=== PATIENT | female | born 1955 | race Caucasian/White ===

== ENCOUNTER → 2018-02-24 07:34 | Outpatient (CLI) | payer OTHER, SELFPAY ==
--- NOTE | 2018-02-24 07:46 | MRI_ITS ---
STUDY: MRI CERVICAL SPINE WITHOUT CONTRAST REASON FOR EXAM: Female, 62 years old. Follow-up evaluation of fracture of the cervical spine. TECHNIQUE: Standardized fat and water weighted pulse sequences were obtained in the sagittal and axial planes. Multiple images are limited by patient motion. COMPARISON: Previous CT of the cervical spine obtained in [place], [place] is not available for comparison at the time of dictation. FINDINGS: Normal foramen magnum and brainstem-cervical cord junction. Normal craniovertebral junction. There is hypertrophy of the transverse ligament of the atlas with mild posterior displacement of the superior and inferior longitudinal fibers of the cruciform ligament, producing minimal ventral thecal sac flattening, but without cervical cord impingement. There are mild degenerative changes in the anterior atlantoaxial articulation. There appear to be erosive changes of the tip of the odontoid process. Normal cervical lordosis. There appears to be compression fractures of C5 and C6. Estimated amount of compression is approximately 70% of C5 and C6. These compression fractures appear to be old. There is anterolisthesis at C5-6. C2-3: There is narrowing of the disc. Significant patient motion limits the quality of imaging at this level. The neural foramina are not well-seen. There is no significant central acquired canal stenosis. C3-4: There is narrowing of the disc. There appears to be severe bilateral neural foraminal narrowing with probable nerve root impingement. There is uncovertebral facet joint arthropathy. C4-5: There is narrowing of the disc. The axial images are nondiagnostic at this level. C5-6: There is anterolisthesis at this level. There is probable acquired canal stenosis at this level. The axial images are nondiagnostic. C6-7: There appears to be a segmentation anomaly at this level. There does not appear to be a normal disc at this level. The neural foramina are mildly narrowed without definite evidence for nerve impingement. C7-T1: Normal endplates. Normal disc height, signal and morphology. Normal central canal and intervertebral neural foramina. Normal cervical cord. There is no demonstrated cervical cord syrinx cavity. Normal visualized soft tissue structures. MRI/Spine Cervical (Routine) IMPRESSION: 1. Technically limited MRI due to patient motion. 2. compression fractures of C5 and C6 with irregular endplates suggesting the possibility of previous discitis and old compression fractures. 3. There is no MR evidence for fracture at C3. Electronically Signed: Bettina Christine MD at 9:46 EDT , Service support ,
== END ==
PROVIDERS: Family Provider Family Medicine; PCP Family Medicine
DX: M47.892 Other spondylosis, cervical region (principal)
CPT/HCPCS: 72141

== ENCOUNTER → 2019-06-20 12:57 | Outpatient (CLI) | payer OTHER, SELFPAY ==
[2017-03-03 12:21] VITALS: BMI 20.2
--- NOTE | 2019-06-20 13:00 | RAD_ITS ---
STUDY: X-RAY - PELVIS AND BILATERAL HIPS REASON FOR EXAM: Hip pain and low back pain since March. TECHNIQUE: AP view of the pelvis.? 2 views of the right hip, and 2 views of the left hip were obtained. COMPARISON: None. FINDINGS: There are small pelvic phleboliths. There are postoperative changes of the lumbar spine. Normal bilateral iliac wings, sacroiliac joints and visualized sacrum. Normal bilateral superior and inferior pubic rami. Normal pubic symphysis. Normal bilateral ischial tuberosities. Normal visualized right femoral head. Normal right acetabulum. There is mild joint space narrowing of the medial right hip joint. Normal visualized left femoral head. Normal left acetabulum. There is mild joint space narrowing of the medial left hip joint. RAD/Hips B/L min 2 views w/ Pelvis IMPRESSION: Mild bilateral hip arthrosis. Electronically Signed: Omid Mitchell MD at 14:05 EST Tel , Service support ,
== END ==
PROVIDERS: PCP Family Medicine; Referring Provider Anesthesiology Pain Medicine; Visit Provider Anesthesiology Pain Medicine
DX: M25.559 Pain in unspecified hip (principal)
CPT/HCPCS: 73521

== ENCOUNTER → 2020-09-09 10:48 | Outpatient (CLI) | payer MEDICARE, OTHER, SELFPAY ==
[2020-09-12 16:46] LABS: HPV APTIMA, High Risk Negative (Negative); HPV Reflexed? YES, CHARGE PATIENT
== END ==
PROVIDERS: PCP Family Medicine; Visit Provider Student in an Organized Health Care Education/Training Program
DX: Z12.4 Encounter for screening for malignant neoplasm of cervix (principal)
CPT/HCPCS: 87624; 88175; G0145

== ENCOUNTER 2023-11-09 12:14 | Emergency (ER) | payer MEDICARE, OTHER, SELFPAY ==
[2023-11-09 12:14] VITALS: BP 125/93; PULSE 72; RESP 19; TEMP 36.2; O2SAT 97; BMI 20.5
--- NOTE | 2023-11-09 13:40 | EKG12_ITS ---
Test Reason : Blood Pressure : / mmHG Vent. Rate : 057 BPM Atrial Rate : 057 BPM P-R Int : 142 ms QRS Dur : 092 ms QT Int : 454 ms P-R-T Axes : 012 019 061 degrees QTc Int : 441 ms Sinus bradycardia Low voltage QRS Nonspecific T wave abnormality Abnormal ECG Confirmed by Darryl Jha ([id number]), manuscript editor CONSTANCE AYALA ([id number]) on 11/10/2023 11:10:42 AM Referred By: Confirmed By:Darryl Jha
--- NOTE | 2023-11-09 13:49 | ED.RN ---
NO OLD EKGS
[2023-11-09 14:00] VITALS: BP 131/88; PULSE 56; RESP 13
--- NOTE | 2023-11-09 14:04 | RAD_ITS ---
STUDY: X-RAY CHEST REASON FOR EXAM: Female, 68 years old. Chest pain with numbness and tingling in the left upper extremity. TECHNIQUE: Single AP portable view of the chest. COMPARISON: None. FINDINGS: EKG electrodes are seen. The lungs are clear and expanded. There is no demonstrated pleural abnormality. Normal size heart. Normal mediastinum and philip. Normal visualized pulmonary arteries. There is atherosclerotic calcification of the aortic arch with tortuosity. There is a dextroscoliosis of the thoracic spine. There is degenerative osteoarthritis of the bilateral shoulders. There is no demonstrated abnormality of the visualized soft tissue structures of the upper abdomen. RAD/Chest 1 View (Portable) IMPRESSION: No acute abnormality is seen. Electronically Signed: Alber Franklin MD at 14:18 EDT ,
--- NOTE | 2023-11-09 14:10 | EDS_ITS ---
HPI History of Present Illness Chief Complaint: Upper Extremity Injury Narrative Narrative: 68-year-old female presenting with aching in her arms. She states it started on Tuesday and she had diffuse aching of her left arm up into her shoulder most of the evening. She states she woke up in the morning and it was gone. She states that later in the day it returned and noted that it was there most of the night again. On Tuesday she had similar pain and noticed that it started radiating to the right arm. She denies chest pain or shortness of breath but states that the aching is very severe. No fevers, chills, cough. No trauma. She has not had any trouble moving her arms or doing her ADLs. She denies numbness. PFSH PFS Home Medications ?Medication ?Instructions ?Recorded ?Last Taken ?Type Bacillus coagulans 250 million 1 ea PO TID 02/25/17 Unknown History cell chewable tablet (Digestive Advantage Probiotic Gummy) [id number] 150 unit 1 ea PO PRN PRN Gas 02/25/17 Unknown History tablet (Beano) cholecalciferol (vitamin D3) 10 400 unit PO DAILY 02/25/17 Unknown History mcg (400 unit) capsule (Vitamin D3) cyanocobalamin (vitamin B-12) 500 500 mcg PO BID 02/25/17 Unknown History mcg tablet (Vitamin B-12) dextroamphetamine-amphetamine ER 20 mg PO BID 02/25/17 03/03/17 07:00 History 20 mg 24hr capsule,extend release (Adderall XR) duloxetine 30 mg capsule,delayed 90 mg PO DAILY 02/25/17 03/03/17 07:00 History release levothyroxine 50 mcg tablet 50 mcg PO DAILY 02/25/17 03/03/17 07:00 History meloxicam 15 mg tablet (Mobic) 15 mg PO DAILY 02/25/17 Unknown History simethicone 125 mg capsule (Gas 125 mg PO PRN PRN Gas 02/25/17 Unknown History Relief (simethicone)) carbidopa 25 mg-levodopa 100 mg 1 tab PO 4X/DAY 11/09/23 Unknown History tablet duloxetine 60 mg capsule,delayed 60 mg PO DAILY 11/09/23 Unknown History release fluoride (sodium) 1.1 % dental PO 11/09/23 Unknown History paste hydroxyzine HCl 25 mg tablet 25 mg PO 4X/DAY PRN PRN depression 11/09/23 Unknown History ibandronate 150 mg tablet mg PO 11/09/23 Unknown History lamotrigine 200 mg tablet 200 mg PO BID 11/09/23 Unknown History linaclotide 72 mcg capsule 72 mcg PO DAILY 11/09/23 Unknown History (Linzess) lisinopril 20 mg tablet 20 mg PO DAILY 11/09/23 Unknown History metformin 500 mg tablet 500 mg PO TID 11/09/23 Unknown History pantoprazole 20 mg tablet,delayed 20 mg PO DAILY 11/09/23 Unknown History release rosuvastatin 10 mg tablet 10 mg PO QHS 11/09/23 Unknown History Allergy/AdvReac Type Severity Reaction Status Date / Time No Known Allergies Allergy Verified 02/25/17 13:17 Social History Smoking Status: Never smoker ROS ROS ED Constitutional Constitutional ED: Denies chills, fever(s) or sweats Eyes Eyes: Denies blurry vision or change in vision ENT ENT ED: Denies ear pain or sore throat Cardiovascular Cardiovascular: Denies chest pain, palpitations or racing heartbeat Respiratory/Chest Respiratory/Chest: Denies cough, dyspnea or sputum Gastrointestinal Gastrointestinal: Denies abdominal pain, constipation, diarrhea, nausea or vomiting Genitourinary Genitourinary ED: Denies dysuria, hematuria or urinary frequency Musculoskeletal Musculoskeletal: Reports other Details: Bilateral arm pain ; Denies arthralgias, myalgias or neck pain Integumentary Denies abscess, Abrasions or rash Neurologic Neurologic: Denies headache(s), paresthesias or weakness Psychiatric Psychiatric: Denies anxiety, depression, suicidal ideation or suicidal thoughts Endocrine Endocrinology: Denies polydipsia or polyuria EXAM Physical Exam Const Vital Signs: 11/09/23 12:14 11/09/23 13:43 Temperature 97.1 F L Temperature Source Temporal Pulse Rate 72 Respiratory Rate 19 H Blood Pressure 125/93 H Blood Pressure Mean 103 Pulse Ox 97 Oxygen Delivery Method Room Air Room Air Positive well nourished General Appearance ED: NAD HEENT Reports moist mucous membranes normocephalic and atraumatic Eyes PERRL and EOMs intact bilaterally Neck full ROM Neck Narrative: No midline spinal tenderness, deformity, step-off. Chest Wall inspection of chest normal and palpation of chest normal Resp normal respiratory effort and clear to auscultation bilaterally Auscultation: Negative for rales, rhonchi or wheezes Cardio regular rate and regular rhythm Extremity Extremity Narrative: Bilateral upper extremities are nontender to palpation. There is no bruising or rashes. Patient is able to range all joints in the upper extremities without any difficulty. Her strength is 5/5. No numbness or tingling. Neurovascular intact throughout. Neuro oriented x3 and CN's II-XII intact bilaterally Sensorium / Orientation: alert Psych mental status grossly normal MDM MDM MDM Narrative Medical decision making narrative: Patient presenting with bilateral arm pain. On examination she is neurovascular intact has 5/5 motor strength. There is no tenderness on palpation. We discussed this at length and ultimately determined we would do a cardiac workup to make sure this was not some kind of atypical presentation. Differential includes myalgias, ACS, dehydration, anemia, electrolyte abnormality. CBC will be obtained to assess white blood cell count, hemoglobin, platelets. BMP to assess renal function, electrolytes, glucose. High-sensitivity troponin and EKG to assess for ischemia/dysrhythmia. Chest x-ray to rule out pneumonia. CBC shows normal white blood cell count 4.8. Hemoglobin 9.4. Platelets are normal at 233. Renal function electrolytes are normal. High-sensitivity troponin is 10. EKG interpreted by myself shows a sinus bradycardia at 57 bpm without sign of ischemic change. Chest x-ray 1 view interpreted by myself shows no acute cardiopulmonary process. Radiologist interpretation agrees. Patient states he had a lot of relief from Toradol. I recommended she alternate Tylenol and ibuprofen at home for pain. She states she is only taking Tylenol. She knowledges understanding. Discharged stable condition. Impression: 1. Myalgias Lab Data Attestation: I reviewed the patient's lab results. Discharge Plan Triage Chief Complaint: Upper Extremity Injury ED Provider: Edgardo Ya Dx/Rx/DC Orders Instructions: ED Myalgias Prescriptions: No Action meloxicam [Mobic] 15 MG tablet 15 mg PO DAILY simethicone [Gas Relief (simethicone)] 125 MG capsule 125 mg PO PRN PRN (Reason: Gas) cyanocobalamin (vitamin B-12) [Vitamin B-12] 500 MCG tablet 500 mcg PO BID dextroamphetamine-amphetamine [Adderall XR] 20 MG capsule,extended release 24hr 20 mg PO BID levothyroxine 50 MCG tablet 50 mcg PO DAILY cholecalciferol (vitamin D3) [Vitamin D3] 400 UNIT capsule 400 unit PO DAILY duloxetine 30 MG capsule 90 mg PO DAILY [id number] [Beano] 150 UNIT tablet 1 ea PO PRN PRN (Reason: Gas) Bacillus coagulans [Digestive Advantage Prob Gummy] 1 EACH tablet,chewable 1 ea PO TID hydroxyzine HCl 25 mg tablet 25 mg PO 4X/DAY PRN PRN (Reason: depression) carbidopa-levodopa 25-100 mg tablet 1 tab PO 4X/DAY duloxetine 60 mg capsule,delayed release(DR/EC) 60 mg PO DAILY fluoride (sodium) 1.1 % paste PO metformin 500 mg tablet 500 mg PO TID lamotrigine 200 mg tablet 200 mg PO BID lisinopril 20 mg tablet 20 mg PO DAILY pantoprazole 20 mg tablet,delayed release (DR/EC) 20 mg PO DAILY rosuvastatin 10 mg tablet 10 mg PO QHS ibandronate 150 mg tablet PO Patient Comments: PLEASE SEE ATTACHED FOR DETAILED DIRECTIONS Linzess 72 mcg capsule 72 mcg PO DAILY Primary Care Provider: Vasile Calabrese Referrals: Vasile Calabrese MD [Primary Care Provider] - Print Language: Mongolian Disposition Disposition: Home, Self Care
[2023-11-09 14:16] LABS: Absolute Lymphocyte Count 0.79 X10^3/uL (0.83-4.51); Absolute Neutrophil Count 3.5 X10^3/uL (2.0-7.7); Basophil# 0.02 X10^3/uL; Basophil% 0.4 % (0-1); Eosinophil# 0.12 X10^3/uL; Eosinophils% 2.5 % (0-5); Hematocrit 35.3 % (37-47); Hemoglobin 11.4 g/dL (12.0-15.0); Lymphocyte # 0.79 X10^3/ul (0.83-4.51); Lymphocyte % 16.3 % (19-41); Mean Corp Hgb Conc 32.3 g/dL (32-36); Mean Corpuscular Hgb 30.6 pg (27.0-32.0); Mean Corpuscular Volume 94.9 fL (81-99); Mean Platelet Vol. 10.2 fl (6.2-12.0); Monocyte# 0.38 X10^3/uL; Monocyte% 7.9 % (0-10); NRBC Flagged by Analyzer 0 % (0-5); Neutrophil # 3.51 X10^3/uL (2.7-7.7); Neutrophil % 72.5 % (47-70); Platelet Count 233 K/mm3 (150-450); RBC Distribution Width CV 13.5 % (11.6-14.6); RBC Distribution Width SD 47.1 fl (35.1-43.9); Red Blood Count 3.72 M/mm3 (4.2-5.4); White Blood Count 4.8 K/mm3 (4.4-11.0)
[2023-11-09 14:32] LABS: Anion Gap 3 (5-15); BUN 17 mg/dL (7-18); BUN/Creat Ratio 19.3 RATIO (10-20); Chloride 110 mmol/L (98-107); Creatinine, Serum 0.88 mg/dL (0.55-1.02); EST Glomerular Filtration Rate 68 mL/min (>60); Est Glom Filt Rate - Afr Amer 82 mL/min (>60); Estimated Creatinine Clearance 51.54 ml/min; Glucose 89 mg/dL (74-106); Potassium 3.7 mmol/L (3.5-5.1); Sodium Level 140 mmol/L (136-145); Troponin-I HS 10 pg/mL (3.0-54.0)
[2023-11-09] MEDS: Ketorolac 15 MG/ML Vial IV (14:38)
[2023-11-09 15:15] VITALS: BP 144/123; PULSE 59; RESP 17
== END 2023-11-09 15:33 | disposition home or self-care (01) ==
PROVIDERS: Emergency Provider Student in an Organized Health Care Education/Training Program; PCP Family Medicine; Visit Provider Student in an Organized Health Care Education/Training Program
DX: M79.10 Myalgia, unspecified site (principal); R00.1 Bradycardia, unspecified; M79.602 Pain in left arm; M79.601 Pain in right arm
CPT/HCPCS: 71045; 80048; 84484; 85025; 93005; 96374; 99283; A4216

== ENCOUNTER 2023-12-08 12:24 | Emergency (ER) | payer MEDICARE, OTHER, SELFPAY ==
[2023-12-08 12:25] VITALS: BP 169/95; PULSE 65; RESP 18; TEMP 36.8; O2SAT 99; BMI 20.2
--- NOTE | 2023-12-08 12:53 | CT_ITS ---
INDICATION: abdominal/flank pain EXAMINATION: CT ABDOMEN AND PELVIS WITHOUT CONTRAST - CT Abdomen And Pelvis W/O Contrast Injection TECHNIQUE: Helically acquired images were obtained of the abdomen and pelvis without oral or IV contrast. The protocol utilizes one or more of the following dose reduction techniques: automated exposure control, adjustment of mA and/or kV according to patient size,and/or use of iterative reconstruction technique. IV Contrast dosage and agent: None. Oral contrast: None. RADIATION DOSAGE (If Supplied By Facility): CTDIvol = ( 6.06 ) mGy, DLP = ( 243.73 ) mGycm COMPARISON: No relevant prior comparison study available FINDINGS: LOWER CHEST: Lung bases are clear. No cardiomegaly or pericardial effusion. The lack of intravenous contrast limits evaluation of solid visceral organs. LIVER: Homogeneous. No focal mass. GALLBLADDER AND BILIARY TREE: No calcified gallstones. The gallbladder is distended. There is no gallbladder wall thickening nor pericholecystic fluid visualized. No intra- or extrahepatic biliary ductal dilation. PANCREAS: No focal cystic or solid mass. SPLEEN: Normal size without focal cystic or solid mass. ADRENAL GLANDS: No nodules. KIDNEYS AND URETERS: Normal renal size. No hydronephrosis. PERITONEUM: No ascites or free air. No other fluid collection. BOWEL: No evidence of acute appendicitis. There is a moderate amount of stool and gas throughout the colon. LYMPH NODES: No enlarged mesenteric or retroperitoneal lymph nodes. VESSELS: Aorta is non-dilated. There are peripheral calcifications of the abdominal aorta. URINARY BLADDER: Unremarkable. REPRODUCTIVE ORGANS: No pelvic masses. ABDOMINAL WALL: No discrete abdominal or pelvic wall hernia. BONES: There is a levoscoliosis of the thoracolumbar spine. There is a neurostimulator device in place with leads terminating within the mid thoracic spinal canal. There are postsurgical changes of the posterior elements of L4 and L5. There are multilevel degenerative changes of the visualized thoracic and lumbar spine. CT/Abdomen/Pelvis without Cont IMPRESSION: Moderate amount of stool and gas throughout the colon. Distended gallbladder, consider right upper quadrant ultrasound for further evaluation. Atherosclerosis. Degenerative changes of the visualized thoracic and lumbar spine. Electronically Signed: Margareth Harper MD at 13:27 EDT ,
--- NOTE | 2023-12-08 12:53 | ED.VIS.GI ---
HPI HPI - GI History of Present Illness Chief Complaint: Constipation Informant: patient Narrative Narrative: 68-year-old female presenting to the emergency room chief complaint of abdominal and back pain. Patient states a couple weeks ago she was placed on Celebrex due to bilateral arm pain of undetermined etiology. Path results. She states over the past week she has had pain along her waistband the abdomen and across the back. She thought maybe she had shingles but has not seen a rash. She states that she has been battling constipation for months especially over the past couple weeks. Yesterday she took MiraLAX and Metamucil. She denies any fevers. She notes some nausea. No history of kidney stones. No urinary symptoms. She is having flatus. Patient describes the pain as menstrual cramp-like but not diarrhea cramps. No other new medications. Patient notes that she has chronic back issues has had prior back surgeries staph infections. She states her back pain has been hurting for a very long time. [facility] Medical History (Updated 12/08/23 @ 12:[address] Shaquille Suresh, ) Restless leg Adult hypothyroidism Home Medications ?Medication ?Instructions ?Recorded ?Last Taken ?Type Bacillus coagulans 250 million 1 ea PO TID 02/25/17 Unknown History cell chewable tablet (Digestive Advantage Probiotic Gummy) [id number] 150 unit 1 ea PO PRN PRN Gas 02/25/17 Unknown History tablet (Beano) cholecalciferol (vitamin D3) 10 400 unit PO DAILY 02/25/17 Unknown History mcg (400 unit) capsule (Vitamin D3) cyanocobalamin (vitamin B-12) 500 500 mcg PO BID 02/25/17 Unknown History mcg tablet (Vitamin B-12) dextroamphetamine-amphetamine ER 20 mg PO BID 02/25/17 03/03/17 07:00 History 20 mg 24hr capsule,extend release (Adderall XR) duloxetine 30 mg capsule,delayed 90 mg PO DAILY 02/25/17 03/03/17 07:00 History release levothyroxine 50 mcg tablet 50 mcg PO DAILY 02/25/17 03/03/17 07:00 History meloxicam 15 mg tablet (Mobic) 15 mg PO DAILY 02/25/17 Unknown History simethicone 125 mg capsule (Gas 125 mg PO PRN PRN Gas 02/25/17 Unknown History Relief (simethicone)) carbidopa 25 mg-levodopa 100 mg 1 tab PO 4X/DAY 11/09/23 Unknown History tablet duloxetine 60 mg capsule,delayed 60 mg PO DAILY 11/09/23 Unknown History release fluoride (sodium) 1.1 % dental PO 11/09/23 Unknown History paste hydroxyzine HCl 25 mg tablet 25 mg PO 4X/DAY PRN PRN depression 11/09/23 Unknown History ibandronate 150 mg tablet mg PO 11/09/23 Unknown History lamotrigine 200 mg tablet 200 mg PO BID 11/09/23 Unknown History linaclotide 72 mcg capsule 72 mcg PO DAILY 11/09/23 Unknown History (Linzess) lisinopril 20 mg tablet 20 mg PO DAILY 11/09/23 Unknown History metformin 500 mg tablet 500 mg PO TID 11/09/23 Unknown History pantoprazole 20 mg tablet,delayed 20 mg PO DAILY 11/09/23 Unknown History release rosuvastatin 10 mg tablet 10 mg PO QHS 11/09/23 Unknown History Allergy/AdvReac Type Severity Reaction Status Date / Time No Known Allergies Allergy Verified 12/08/23 12:27 Social History Smoking Status: Never smoker ROS ROS ED Constitutional Constitutional ED: Denies chills, fever(s) or weight loss Eyes Eyes: Denies change in vision or diplopia ENT ENT ED: Denies ear pain, rhinorrhea or sore throat Cardiovascular Cardiovascular: Denies chest pain, orthopnea, palpitations or racing heartbeat Respiratory/Chest Respiratory/Chest: Denies cough, dyspnea or orthopnea Gastrointestinal Gastrointestinal: Reports constipation and nausea; Denies abdominal pain, diarrhea or vomiting Genitourinary Genitourinary ED: Denies dysuria, hematuria or urinary frequency Musculoskeletal Musculoskeletal: Reports back pain; Denies arthralgias, myalgias or neck pain Integumentary Denies abscess or rash Neurologic Neurologic: Denies headache(s), paresthesias or weakness Psychiatric Psychiatric: Denies anxiety, depression, suicidal ideation or suicidal thoughts Endocrine Endocrinology: Denies polydipsia, polyphagia or polyuria Allergic/Immunologic Allergic/Immunologic ED: Denies mouth swelling, tongue swelling or urticaria EXAM Physical Exam Const Vital Signs: 12/08/23 12:25 Temperature 98.2 F Temperature Source Temporal Pulse Rate 65 Respiratory Rate 18 Blood Pressure 169/95 H Blood Pressure Mean 119 Pulse Ox 99 Oxygen Delivery Method Room Air Positive well nourished and well developed General Appearance ED: well developed HEENT Reports normocephalic, head/scalp atraumatic and moist mucous membranes Eyes PERRL and EOMs intact bilaterally Neck no lymphadenopathy, supple and no JVD Resp normal respiratory effort and clear to auscultation bilaterally Cardio regular rate, regular rhythm and no murmurs GI normal to inspection, nondistended, normoactive bowel sounds and non-tender Palpation: soft Back/Spine no CVA tenderness and normal ROM Extremity normal to inspection General Extremety ED: Negative for edema General Extremity: Negative for edema Neuro oriented x3 and CN's II-XII intact bilaterally Sensorium / Orientation: alert Motor Exam: strength 5/5 throughout Psych mental status grossly normal Mood & Affect: Negative for depressed or tearful Skin no rashes or lesions noted and no wounds MDM MDM MDM Narrative Medical decision making narrative: Differential diagnosis includes but not limited to small bowel obstruction constipation fecal impaction volvulus colitis ureterolithiasis Patient received a dose of Zofran and Bentyl. CT of the abdomen pelvis demonstrates moderate amount of stool and gas throughout the colon. Noted distended gallbladder but the patient has no tenderness in the right upper quadrant or epigastrium. I do not feel a gallbladder ultrasound is indicated at this time. She continues to describe of intermittent crampy like abdominal pain across to her lower waistline. I think the patient would benefit from some magnesium citrate to help stimulate a bowel movement. She may repeat this in 12 hours if no bowel movement. History & Record Review Discussion w/independent historian: Patient and Significant other Radiography Diagnostic Testing: Clinical Impression(s) from Imaging Studies Abdomen/Pelvis CT 12/08/23 12:53 IMPRESSION: Moderate amount of stool and gas throughout the colon. Distended gallbladder, consider right upper quadrant ultrasound for further evaluation. Atherosclerosis. Degenerative changes of the visualized thoracic and lumbar spine. Electronically Signed: Margareth Harper MD at 13:27 EDT , Discharge Plan Triage Chief Complaint: Constipation ED Provider: [place] Dx/Rx/DC Orders Prescriptions: No Action meloxicam [Mobic] 15 MG tablet 15 mg PO DAILY simethicone [Gas Relief (simethicone)] 125 MG capsule 125 mg PO PRN PRN (Reason: Gas) cyanocobalamin (vitamin B-12) [Vitamin B-12] 500 MCG tablet 500 mcg PO BID dextroamphetamine-amphetamine [Adderall XR] 20 MG capsule,extended release 24hr 20 mg PO BID levothyroxine 50 MCG tablet 50 mcg PO DAILY cholecalciferol (vitamin D3) [Vitamin D3] 400 UNIT capsule 400 unit PO DAILY duloxetine 30 MG capsule 90 mg PO DAILY uitap-s-utflhzmfaelce [Beano] 150 UNIT tablet 1 ea PO PRN PRN (Reason: Gas) Bacillus coagulans [Digestive Advantage Prob Gummy] 1 EACH tablet,chewable 1 ea PO TID hydroxyzine HCl 25 mg tablet 25 mg PO 4X/DAY PRN PRN (Reason: depression) carbidopa-levodopa 25-100 mg tablet 1 tab PO 4X/DAY duloxetine 60 mg capsule,delayed release(DR/EC) 60 mg PO DAILY fluoride (sodium) 1.1 % paste PO metformin 500 mg tablet 500 mg PO TID lamotrigine 200 mg tablet 200 mg PO BID lisinopril 20 mg tablet 20 mg PO DAILY pantoprazole 20 mg tablet,delayed release (DR/EC) 20 mg PO DAILY rosuvastatin 10 mg tablet 10 mg PO QHS ibandronate 150 mg tablet PO Patient Comments: PLEASE SEE ATTACHED FOR DETAILED DIRECTIONS Linzess 72 mcg capsule 72 mcg PO DAILY Primary Care Provider: Vasile Calabrese Referrals: Vasile Calabrese MD [Primary Care Provider] - Print Language: Panamanian
[2023-12-08] MEDS: Dicyclomine 10 MG Capsule 20 MG PO (13:38)
[2023-12-08] MEDS: Ondansetron ODT 4 MG Tablet PO (13:38)
[2023-12-08 14:36] VITALS: BP 154/78; PULSE 81; RESP 16; TEMP 36.6; O2SAT 99
== END 2023-12-08 14:41 | disposition home or self-care (01) ==
PROVIDERS: Emergency Provider Emergency Medicine; PCP Family Medicine; Visit Provider Emergency Medicine
DX: R10.9 Unspecified abdominal pain (principal); M79.602 Pain in left arm; R11.0 Nausea; M79.601 Pain in right arm; E03.9 Hypothyroidism, unspecified; M54.9 Dorsalgia, unspecified
CPT/HCPCS: 74176; 99282

== ENCOUNTER 2023-12-19 15:28 | Emergency (ER) | payer MEDICARE, OTHER, SELFPAY ==
[2023-12-19 15:29] VITALS: BP 146/112; PULSE 75; RESP 16; TEMP 36.8; O2SAT 100
--- NOTE | 2023-12-19 15:47 | EX.ED.DYSGE1 ---
HPI History of Present Illness Chief Complaint: Abd Pain Detail of Chief Complaint: Generalized abdominal pain and back pain Informant: patient Onset/Context/Timing Onset: Month(s) (Approximately 1 month) Timing: Intermittent Quality: Pain Location: Abdomen radiating to the back Current Severity: Mild Maximum Severity: Severe Worsened by: It is worse after 10 Relieved by: nothing Associated Symptoms Associated Symptoms: Constipation Narrative Narrative: Patient is a 68-year-old woman. 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 She was last scoped April 2023. Working diagnosis at this time is IBS. Her primary care physician is Dr. Drake Luke. She reports her last bowel movement was Tuesday and prior to that was 1 week ago. Prior to this episode there was no change in color, consistency or caliber of her stool. She denies night sweats. She states she cannot have night sweats because she cannot sleep because of the pain. She denies any food intolerance. She denies vomiting. She denies dysuria, frequency, urgency or hematuria. She denies history of bowel obstruction. She states she has had no abdominal surgery. Prior similar symptoms: Yes Recent Illness/Hospitalization: No [facility] Medical History Restless leg Adult hypothyroidism Home Medications ?Medication ?Instructions ?Recorded ?Last Taken ?Type Bacillus coagulans 250 million 1 ea PO TID 02/25/17 Unknown History cell chewable tablet (Digestive Advantage Probiotic Gummy) [id number] 150 unit 1 ea PO PRN PRN Gas 02/25/17 Unknown History tablet (Beano) cholecalciferol (vitamin D3) 10 400 unit PO DAILY 02/25/17 Unknown History mcg (400 unit) capsule (Vitamin D3) cyanocobalamin (vitamin B-12) 500 500 mcg PO BID 02/25/17 Unknown History mcg tablet (Vitamin B-12) dextroamphetamine-amphetamine ER 20 mg PO BID 02/25/17 03/03/17 07:00 History 20 mg 24hr capsule,extend release (Adderall XR) duloxetine 30 mg capsule,delayed 90 mg PO DAILY 02/25/17 03/03/17 07:00 History release levothyroxine 50 mcg tablet 50 mcg PO DAILY 02/25/17 03/03/17 07:00 History meloxicam 15 mg tablet (Mobic) 15 mg PO DAILY 02/25/17 Unknown History simethicone 125 mg capsule (Gas 125 mg PO PRN PRN Gas 02/25/17 Unknown History Relief (simethicone)) carbidopa 25 mg-levodopa 100 mg 1 tab PO 4X/DAY 11/09/23 Unknown History tablet duloxetine 60 mg capsule,delayed 60 mg PO DAILY 11/09/23 Unknown History release fluoride (sodium) 1.1 % dental PO 11/09/23 Unknown History paste hydroxyzine HCl 25 mg tablet 25 mg PO 4X/DAY PRN PRN depression 11/09/23 Unknown History ibandronate 150 mg tablet mg PO 11/09/23 Unknown History lamotrigine 200 mg tablet 200 mg PO BID 11/09/23 Unknown History linaclotide 72 mcg capsule 72 mcg PO DAILY 11/09/23 Unknown History (Linzess) lisinopril 20 mg tablet 20 mg PO DAILY 11/09/23 Unknown History metformin 500 mg tablet 500 mg PO TID 11/09/23 Unknown History pantoprazole 20 mg tablet,delayed 20 mg PO DAILY 11/09/23 Unknown History release rosuvastatin 10 mg tablet 10 mg PO QHS 11/09/23 Unknown History magnesium citrate 300 ml PO X1 #2 BOTTLES 12/08/23 Unknown Rx zolpidem 5 mg tablet (Ambien) 5 mg PO QHS PRN insomnia 3 days #3 12/19/23 Unknown Rx tabs Allergy/AdvReac Type Severity Reaction Status Date / Time No Known Allergies Allergy Verified 12/19/23 15:29 Surgical History no surgical history no surgical history Social History (Updated 12/19/23 @ 15:[address] Isaac Kenyon MD) household members: spouse Smoking Status: Never smoker ROS ROS ED Constitutional Constitutional ED: Denies chills, fever(s), subjective, sweats or weight loss Eyes Eyes: Denies blurry vision or change in vision ENT ENT ED: Denies ear pain, rhinorrhea or sore throat Cardiovascular Cardiovascular: Denies chest pain or palpitations Respiratory/Chest Respiratory/Chest: Denies cough, dyspnea or dyspnea on exertion Gastrointestinal Gastrointestinal: Reports abdominal pain and constipation; Denies diarrhea, melena or vomiting Genitourinary Genitourinary ED: Denies dysuria, hematuria or urinary frequency Musculoskeletal Musculoskeletal: Reports back pain; Denies arthralgias, myalgias or neck pain Integumentary Denies rash Psychiatric Psychiatric: Denies anxiety or depression Endocrine Endocrinology: Denies cold intolerance or heat intolerance Hematologic/Lymphatic Hematologic/Lymphatic: Reports systems reviewed and no addt'l complaints, except as documented EXAM Physical Exam Const Vital Signs: 12/19/23 15:29 Temperature 98.2 F Temperature Source Oral Pulse Rate 75 Respiratory Rate 16 Blood Pressure 146/112 H Blood Pressure Mean 123 Pulse Ox 100 Oxygen Delivery Method Room Air Positive well nourished and well developed General Appearance ED: well developed, NAD and pallor HEENT Reports moist mucous membranes HEENT Narrative: Head is atraumatic and normocephalic. Ears normal. Nares patent. Eyes PERRL and EOMs intact bilaterally General Eye ED: Negative for pale conjunctiva or scleral icterus Neck no lymphadenopathy, supple and no JVD Chest Wall inspection of chest normal and palpation of chest normal Resp normal respiratory effort and clear to auscultation bilaterally Cardio regular rate, regular rhythm, S1 normal heart sound, S2 normal heart sound and no murmurs GI no masses; Negative for non-tender, non-distended or hepatosplenomegaly Inspection: Negative for abdominal distention Auscultation: hypoactive bowel sounds Palpation: soft and tender other (Generalized) Back/Spine no CVA tenderness Extremity normal to inspection General Extremety ED: Negative for edema or tenderness General Extremity: Negative for edema Neuro oriented x3, CN's II-XII intact bilaterally and no sensory deficits noted Sensorium / Orientation: alert Motor Exam: strength 5/5 throughout Psych mental status grossly normal Skin no rashes or lesions noted, no wounds and skin turgor normal General Skin Exam: pallor; Negative for elasticity normal or jaundice MDM MDM MDM Narrative Medical decision making narrative: Differential diagnosis is abdominal pain of unknown etiology, IBS, doubt inflammatory bowel disorder doubt obstruction because patient is distended tympanitic abdominal series was obtained to assess for any air-fluid levels dilated bowel edematous of the bowel blood work was obtained assess white count, renal function, liver enzymes Lab Data Attestation: I reviewed the patient's lab results. Lab results narrative: CBC is remarkable for anemia with normal indices. Prior labs indicates she has chronic anemia. BUN and creatinine are elevated from prior. 22 and 1. 1 6. Last creatinine was 0.8. Alkaline phosphatase slight elevated 131. This is nonsignificant. Labs: Laboratory Results - last 24 hr 12/19/23 15:45 WBC 7.8 RBC 3.85 L Hgb 11.9 L Hct 36.5 L MCV 94.8 MCH 30.9 MCHC 32.6 RDW Std Deviation 48.9 H RDW Coeff of Lisa 14.0 Plt Count 326 MPV 9.6 Immature Gran % (Auto) 1.400 H Neut % (Auto) 73.1 H Lymph % (Auto) 16.2 L [place] % (Auto) 7.5 Eos % (Auto) 1.4 Baso % (Auto) 0.4 Absolute Neuts (auto) 5.7 Absolute Lymphs (auto) 1.27 Nucleated RBC % 0 Sodium 142 Potassium 3.8 Chloride 107 Carbon Dioxide 27.0 Anion Gap 8 BUN 22 H Creatinine 1.16 H Est GFR (MDRD) Af Amer 60 Est GFR (MDRD) Non-Af 49 L BUN/Creatinine Ratio 19.0 Glucose 95 Calcium 9.1 Total Bilirubin 0.30 AST 25 ALT 16 Alkaline Phosphatase 131 H Total Protein 7.0 Albumin 3.2 Globulin 3.8 Albumin/Globulin Ratio 0.8 L Lipase 56 Radiography Chest X-Ray - ED: Read by ED Physician (Abdominal series reveals a spine stimulator. The aorta is tortuous. Cardiac silhouette size normal. Lung parenchyma normal. Hilum is unremarkable. Patient has increased fecal material noted in ascending colon. There is an ossific gas pattern. There is no dilatation of the small or large bowel) Diagnostic Testing: Clinical Impression(s) from Imaging Studies Acute Abdomen Series 12/19/23 15:55 IMPRESSION: No acute disease Electronically Signed: Ba Oliveros MD at 16:17 EDT , Treatment and Re-Evaluation :: Patient was informed of her laboratory results and x-ray results. Patient was given a prescription for Ambien to help her sleep since she has not slept the last week. She was instructed to drink 10 ounces of mag citrate upon awakening. 4 hours later to drink 1 glass of MiraLAX and continue to drink a beverage with MiraLAX every 1-2 hours until she has results. Discharge Plan Triage Chief Complaint: Abd Pain Other Complaint: Back ED Provider: Isaac Kenyon Dx/Rx/DC Orders Clinical Impression: Acute generalized abdominal pain, Acute constipation, Elevated blood pressure reading with diagnosis of hypertension, Insomnia Instructions: ED Abdominal Pain Unkn Cause Fem Prescriptions: New zolpidem [Ambien] 5 mg tablet 5 mg PO QHS PRN (Reason: insomnia) 3 Days Qty: 3 0RF No Action meloxicam [Mobic] 15 MG tablet 15 mg PO DAILY simethicone [Gas Relief (simethicone)] 125 MG capsule 125 mg PO PRN PRN (Reason: Gas) cyanocobalamin (vitamin B-12) [Vitamin B-12] 500 MCG tablet 500 mcg PO BID dextroamphetamine-amphetamine [Adderall XR] 20 MG capsule,extended release 24hr 20 mg PO BID levothyroxine 50 MCG tablet 50 mcg PO DAILY cholecalciferol (vitamin D3) [Vitamin D3] 400 UNIT capsule 400 unit PO DAILY duloxetine 30 MG capsule 90 mg PO DAILY [id number] [Beano] 150 UNIT tablet 1 ea PO PRN PRN (Reason: Gas) Bacillus coagulans [Digestive Advantage Prob Gummy] 1 EACH tablet,chewable 1 ea PO TID magnesium citrate Solution 300 ml PO X1 Qty: 2 0RF Rx Instructions: May repeat in 12 hours if no substantial bowel movement hydroxyzine HCl 25 mg tablet 25 mg PO 4X/DAY PRN PRN (Reason: depression) carbidopa-levodopa 25-100 mg tablet 1 tab PO 4X/DAY duloxetine 60 mg capsule,delayed release(DR/EC) 60 mg PO DAILY fluoride (sodium) 1.1 % paste PO metformin 500 mg tablet 500 mg PO TID lamotrigine 200 mg tablet 200 mg PO BID lisinopril 20 mg tablet 20 mg PO DAILY pantoprazole 20 mg tablet,delayed release (DR/EC) 20 mg PO DAILY rosuvastatin 10 mg tablet 10 mg PO QHS ibandronate 150 mg tablet PO Patient Comments: PLEASE SEE ATTACHED FOR DETAILED DIRECTIONS Linzess 72 mcg capsule 72 mcg PO DAILY Primary Care Provider: Vasile Calabrese Referrals: Vasile Calabrese MD [Primary Care Provider] - 3-5 Days if not improving Activity Restrictions/Additional Instructions: 1. Upon awakening tomorrow morning drink 10 ounces of magnesium citrate. 2. 4 hours after drinking the magnesium citrate drink a glass with a cap of MiraLAX. Drink a glass of your favorite beverage with MiraLAX every 1-2 hours until you have results Print Language: Yemeni Disposition Disposition: Home, Self Care
--- NOTE | 2023-12-19 15:55 | RAD_ITS ---
STUDY: X-RAY - ACUTE ABDOMINAL SERIES REASON FOR EXAM: Female, 68 years old. Pain, distention, constipation TECHNIQUE: Single view of the chest. Supine, and erect view(s) of the abdomen were obtained. COMPARISON: None. FINDINGS: Intraspinal electrode catheters mid thoracic spine with transducer projecting over the left lower abdomen. These appear unchanged. Subsegmental atelectasis left base. Normal size heart. Normal mediastinum and philip. Normal visualized pulmonary arteries. Normal visualized aortic arch and descending thoracic aorta. There is a non-specific bowel gas pattern. The soft tissue structures of the abdomen and pelvis are unremarkable. Moderate scoliosis. RAD/Acute Abdomen Inc Chest IMPRESSION: No acute disease Electronically Signed: Ba Oliveros MD at 16:17 EDT ,
[2023-12-19 16:05] LABS: Absolute Lymphocyte Count 1.27 X10^3/uL (0.83-4.51); Absolute Neutrophil Count 5.7 X10^3/uL (2.0-7.7); Basophil# 0.03 X10^3/uL; Basophil% 0.4 % (0-1); Eosinophil# 0.11 X10^3/uL; Eosinophils% 1.4 % (0-5); Hematocrit 36.5 % (37-47); Hemoglobin 11.9 g/dL (12.0-15.0); Lymphocyte # 1.27 X10^3/ul (0.83-4.51); Lymphocyte % 16.2 % (19-41); Mean Corp Hgb Conc 32.6 g/dL (32-36); Mean Corpuscular Hgb 30.9 pg (27.0-32.0); Mean Corpuscular Volume 94.8 fL (81-99); Mean Platelet Vol. 9.6 fl (6.2-12.0); Monocyte# 0.59 X10^3/uL; Monocyte% 7.5 % (0-10); NRBC Flagged by Analyzer 0 % (0-5); Neutrophil # 5.72 X10^3/uL (2.7-7.7); Neutrophil % 73.1 % (47-70); Platelet Count 326 K/mm3 (150-450); RBC Distribution Width SD 48.9 fl (35.1-43.9); Red Blood Count 3.85 M/mm3 (4.2-5.4); White Blood Count 7.8 K/mm3 (4.4-11.0)
[2023-12-19 16:23] LABS: ALB/GLOB Ratio 0.8 RATIO (0.9-2.4); AST(SGOT) 25 U/L (15-37); Alanine Aminotransfer ALT/SGPT 16 U/L (13-56); Albumin, Serum 3.2 g/dL (3.2-5.0); Alkaline Phosphatase 131 U/L (45-117); Anion Gap 8 (5-15); BUN 22 mg/dL (7-18); Calcium,Total 9.1 mg/dL (8.5-10.1); Chloride 107 mmol/L (98-107); Creatinine, Serum 1.16 mg/dL (0.55-1.02); EST Glomerular Filtration Rate 49 mL/min (>60); Est Glom Filt Rate - Afr Amer 60 mL/min (>60); Globulin 3.8 g/dL (2.2-4.2); Glucose 95 mg/dL (74-106); Lipase 56 U/L (13-75); Potassium 3.8 mmol/L (3.5-5.1); Sodium Level 142 mmol/L (136-145)
[2023-12-19 17:29] VITALS: BP 160/78; PULSE 89; RESP 16; TEMP 36.7; O2SAT 99
== END 2023-12-19 17:31 | disposition home or self-care (01) ==
PROVIDERS: Emergency Provider Emergency Medicine; PCP Family Medicine; Visit Provider Emergency Medicine
DX: R10.84 Generalized abdominal pain (principal); K59.00 Constipation, unspecified; G47.00 Insomnia, unspecified; M54.9 Dorsalgia, unspecified; I10 Essential (primary) hypertension; E03.9 Hypothyroidism, unspecified; Z79.84 Long term (current) use of oral hypoglycemic drugs; Z79.890 Hormone replacement therapy; Z79.899 Other long term (current) drug therapy
CPT/HCPCS: 74022; 80053; 83690; 85025; 99284; A4216

== ENCOUNTER 2024-01-06 10:50 | Emergency (ER) | payer MEDICARE, OTHER, SELFPAY ==
[2024-01-06 10:51] VITALS: BP 164/115; PULSE 83; RESP 16; TEMP 36.3; O2SAT 98
[2024-01-06 11:33] LABS: Mucous, Urine 0 SEEN /hpf (<or=2+); Squamous Epithelial Cells - UA 0 SEEN /hpf (5-10)
[2024-01-06 11:38] LABS: Color, Urine Straw (Yellow); Glucose, Dipstick Normal (Normal); Ketone-Dipstick Negative (Negative); Leukocyte Esterase-Dipstick 25 /ul (Negative); Nitrite-Dipstick Negative (Negative); Occult Blood-Urine Negative /ul (Negative); Protein-Dipstick Negative (Negative); Urine Bilirubin Dipstick Negative (Negative); Urine Clarity Clear (Clear); Urine Urobilinogen Normal (Normal)
[2024-01-06 11:41] LABS: Hematocrit 38.3 % (37-47); Hemoglobin 12.9 g/dL (12.0-15.0); Mean Corp Hgb Conc 33.7 g/dL (32-36); Mean Corpuscular Hgb 31.5 pg (27.0-32.0); Mean Corpuscular Volume 93.4 fL (81-99); Mean Platelet Vol. 9.3 fl (6.2-12.0); Platelet Count 429 K/mm3 (150-450); RBC Distribution Width CV 13.9 % (11.6-14.6); RBC Distribution Width SD 47.3 fl (35.1-43.9); White Blood Count 8.3 K/mm3 (4.4-11.0)
[2024-01-06 11:46] LABS: Red Blood Cells-Urine 0-5 SEEN /hpf (0-5)
[2024-01-06 11:47] LABS: Anion Gap 8 (5-15); BUN 14 mg/dL (7-18); BUN/Creat Ratio 17.4 RATIO (10-20); Calcium,Total 10.1 mg/dL (8.5-10.1); Chloride 101 mmol/L (98-107); EST Glomerular Filtration Rate 75 mL/min (>60); Est Glom Filt Rate - Afr Amer 91 mL/min (>60); Glucose 99 mg/dL (74-106); Potassium 3.6 mmol/L (3.5-5.1); Sodium Level 137 mmol/L (136-145)
[2024-01-06 11:47] LABS: Bacteria RARE /hpf (None Seen); White Blood Cells 0-5 SEEN /hpf (0-5)
[2024-01-06 12:02] VITALS: BP 152/88; PULSE 70; RESP 19; TEMP 36.3; O2SAT 100
--- NOTE | 2024-01-06 13:00 | EDS_ITS ---
HPI History of Present Illness Chief Complaint: Hypertension [facility] Medical History Restless leg Adult hypothyroidism Home Medications ?Medication ?Instructions ?Recorded ?Last Taken ?Type Bacillus coagulans 250 million 1 ea PO TID 02/25/17 Unknown History cell chewable tablet (Digestive Advantage Probiotic Gummy) [id number] 150 unit 1 ea PO PRN PRN Gas 02/25/17 Unknown History tablet (Beano) cholecalciferol (vitamin D3) 10 400 unit PO DAILY 02/25/17 Unknown History mcg (400 unit) capsule (Vitamin D3) cyanocobalamin (vitamin B-12) 500 500 mcg PO BID 02/25/17 Unknown History mcg tablet (Vitamin B-12) dextroamphetamine-amphetamine ER 20 mg PO BID 02/25/17 03/03/17 07:00 History 20 mg 24hr capsule,extend release (Adderall XR) duloxetine 30 mg capsule,delayed 90 mg PO DAILY 02/25/17 03/03/17 07:00 History release levothyroxine 50 mcg tablet 50 mcg PO DAILY 02/25/17 03/03/17 07:00 History meloxicam 15 mg tablet (Mobic) 15 mg PO DAILY 02/25/17 Unknown History simethicone 125 mg capsule (Gas 125 mg PO PRN PRN Gas 02/25/17 Unknown History Relief (simethicone)) carbidopa 25 mg-levodopa 100 mg 1 tab PO 4X/DAY 11/09/23 Unknown History tablet duloxetine 60 mg capsule,delayed 60 mg PO DAILY 11/09/23 Unknown History release fluoride (sodium) 1.1 % dental PO 11/09/23 Unknown History paste hydroxyzine HCl 25 mg tablet 25 mg PO 4X/DAY PRN PRN depression 11/09/23 Unknown History ibandronate 150 mg tablet mg PO 11/09/23 Unknown History lamotrigine 200 mg tablet 200 mg PO BID 11/09/23 Unknown History linaclotide 72 mcg capsule 72 mcg PO DAILY 11/09/23 Unknown History (Linzess) lisinopril 20 mg tablet 20 mg PO DAILY 11/09/23 Unknown History metformin 500 mg tablet 500 mg PO TID 11/09/23 Unknown History pantoprazole 20 mg tablet,delayed 20 mg PO DAILY 11/09/23 Unknown History release rosuvastatin 10 mg tablet 10 mg PO QHS 11/09/23 Unknown History magnesium citrate 300 ml PO X1 #2 BOTTLES 12/08/23 Unknown Rx zolpidem 5 mg tablet (Ambien) 5 mg PO QHS PRN insomnia 3 days #3 12/19/23 Unknown Rx tabs hydrocodone-acetaminophen 5-325mg 1 tab PO Q6H PRN PRN Pain 3 days 01/06/24 Unknown Rx 5mg-325mg #10 TABLETS Allergy/AdvReac Type Severity Reaction Status Date / Time No Known Allergies Allergy Verified 01/06/24 10:50 Social History (Updated 12/19/23 @ 15:[address] Isaac Kenyon MD) household members: spouse Smoking Status: Never smoker EXAM Physical Exam Const Vital Signs: 01/06/24 10:51 01/06/24 11:24 01/06/24 12:02 Temperature 97.4 F L 97.4 F L Temperature Source Temporal Temporal Pulse Rate 83 70 Respiratory Rate 16 19 H Respiratory Effort Normal Non-Labored Respiratory Pattern Normal Blood Pressure 164/115 H 152/88 H Blood Pressure Mean 131 109 Pulse Ox 98 100 Oxygen Delivery Method Room Air Room Air MDM MDM Lab Data Attestation: I reviewed the patient's lab results. Lab results narrative: There is no evidence of endorgan dysfunction. BMP is normal. CBC is normal. UA reveals no proteinuria or hematuria. Labs: Laboratory Results - last 24 hr 01/06/24 01/06/24 11:21 11:24 WBC 8.3 RBC 4.10 L Hgb 12.9 Hct 38.3 MCV 93.4 MCH 31.5 MCHC 33.7 RDW Std Deviation 47.3 H RDW Coeff of Lisa 13.9 Plt Count 429 MPV 9.3 Sodium 137 Potassium 3.6 Chloride 101 Carbon Dioxide 28.0 Anion Gap 8 BUN 14 Creatinine 0.80 Est GFR (MDRD) Af Amer 91 Est GFR (MDRD) Non-Af 75 BUN/Creatinine Ratio 17.4 Glucose 99 Calcium 10.1 Urine Color Straw Urine Clarity Clear Urine pH 7.0 Ur Specific [place] 1.010 Urine Protein Negative Urine Glucose (UA) Normal Urine Ketones Negative Urine Occult Blood Negative Urine Nitrite Negative Urine Bilirubin Negative Urine Urobilinogen Normal Ur Leukocyte Esterase 25 H Urine RBC 0-5 SEEN Urine WBC 0-5 SEEN Ur Squamous Epith Cells 0 SEEN Urine Bacteria RARE Urine Mucus 0 SEEN Treatment and Re-Evaluation :: Patient were informed of results. Most recent blood pressure is 109 systolic. In light of this we will not start antihypertensive meds. Will have her follow-up with her doctor to have blood pressure checked again. She did request medication for pain. She has chronic pain. She is scheduled to see pain management. Discharge Plan Triage Chief Complaint: Hypertension ED Provider: Isaac Kenyon Dx/Rx/DC Orders Clinical Impression: Elevated blood-pressure reading, without diagnosis of hypertension, Chronic pain Instructions: ED Chronic Pain, ED Hypertension, To Be Confirmed Prescriptions: New hydrocodone-acetaminophen 5-325 mg tablet 1 tab PO Q6H PRN PRN (Reason: Pain) 3 Days Qty: 10 0RF No Action meloxicam [Mobic] 15 MG tablet 15 mg PO DAILY simethicone [Gas Relief (simethicone)] 125 MG capsule 125 mg PO PRN PRN (Reason: Gas) cyanocobalamin (vitamin B-12) [Vitamin B-12] 500 MCG tablet 500 mcg PO BID dextroamphetamine-amphetamine [Adderall XR] 20 MG capsule,extended release 24hr 20 mg PO BID levothyroxine 50 MCG tablet 50 mcg PO DAILY cholecalciferol (vitamin D3) [Vitamin D3] 400 UNIT capsule 400 unit PO DAILY duloxetine 30 MG capsule 90 mg PO DAILY [id number] [Beano] 150 UNIT tablet 1 ea PO PRN PRN (Reason: Gas) Bacillus coagulans [Digestive Advantage Prob Gummy] 1 EACH tablet,chewable 1 ea PO TID magnesium citrate Solution 300 ml PO X1 Qty: 2 0RF Rx Instructions: May repeat in 12 hours if no substantial bowel movement zolpidem [Ambien] 5 mg tablet 5 mg PO QHS PRN (Reason: insomnia) 3 Days Qty: 3 0RF hydroxyzine HCl 25 mg tablet 25 mg PO 4X/DAY PRN PRN (Reason: depression) carbidopa-levodopa 25-100 mg tablet 1 tab PO 4X/DAY duloxetine 60 mg capsule,delayed release(DR/EC) 60 mg PO DAILY fluoride (sodium) 1.1 % paste PO metformin 500 mg tablet 500 mg PO TID lamotrigine 200 mg tablet 200 mg PO BID lisinopril 20 mg tablet 20 mg PO DAILY pantoprazole 20 mg tablet,delayed release (DR/EC) 20 mg PO DAILY rosuvastatin 10 mg tablet 10 mg PO QHS ibandronate 150 mg tablet PO Patient Comments: PLEASE SEE ATTACHED FOR DETAILED DIRECTIONS Linzess 72 mcg capsule 72 mcg PO DAILY Primary Care Provider: Vasile Calabrese Referrals: Vasile Calabrese MD [Primary Care Provider] - 1 Week Print Language: Ecuadorean Disposition Disposition: Home, Self Care
[2024-01-06 13:13] VITALS: BP 128/97; PULSE 73; RESP 20; TEMP 36.6; O2SAT 100
== END 2024-01-06 13:21 | disposition home or self-care (01) ==
PROVIDERS: Emergency Provider Emergency Medicine; PCP Family Medicine; Visit Provider Emergency Medicine
DX: R03.0 Elevated blood-pressure reading, without diagnosis of hypertension (principal); G89.29 Other chronic pain; G25.81 Restless legs syndrome; E03.9 Hypothyroidism, unspecified; Z79.899 Other long term (current) drug therapy
CPT/HCPCS: 80048; 81001; 85027; 99284; A4216

== ENCOUNTER 2024-02-21 10:18 | Emergency (ER) | payer MEDICARE, OTHER, SELFPAY ==
[2024-02-21 10:18] VITALS: BP 137/67; PULSE 57; TEMP 36.7
[2024-02-21 10:27] VITALS: RESP 19; O2SAT 97
--- NOTE | 2024-02-21 10:33 | EKG12_ITS ---
Test Reason : Blood Pressure : / mmHG Vent. Rate : 059 BPM Atrial Rate : 059 BPM P-R Int : 146 ms QRS Dur : 092 ms QT Int : 476 ms P-R-T Axes : 019 014 049 degrees QTc Int : 471 ms Sinus bradycardia Otherwise normal ECG Confirmed by HOPE NELSON, ANASTASIA ([id number]), content editor CONSTANCE AYALA ([id number]) on 02/22/2024 9:25:16 AM Referred By: Confirmed By:ANASTASIA ARNETT MD
--- NOTE | 2024-02-21 10:34 | EDS_ITS ---
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 She was getting follow-up from cataract surgery, and had been examined, when she felt very lightheaded and near syncopal. Her spouse states that she has had problems with vasovagal episodes in the past. Last time this happened when she nearly passed out, was when they were trying to get an IV in her arm. She is being worked up for abdominal pain including endoscopy, but he states that they have not found anything recently. While she was hypotensive, and near syncopal, she started complaining of left arm pain/left upper arm aching, and states that it radiated into her jaw, but that portion has resolved. She denies any chest pain or shortness of breath. She does have past medical history of hypertension and took her medications this morning. No exacerbating or alleviating factors. [facility] Medical History Restless leg Adult hypothyroidism Home Medications ?Medication ?Instructions ?Recorded ?Last Taken ?Type Bacillus coagulans 250 million 1 ea PO TID 02/25/17 Unknown History cell chewable tablet (Digestive Advantage Probiotic Gummy) naxth-i-lbujzwbzkezpb 150 unit 1 ea PO PRN PRN Gas 02/25/17 Unknown History tablet (Beano) cholecalciferol (vitamin D3) 10 400 unit PO DAILY 02/25/17 Unknown History mcg (400 unit) capsule (Vitamin D3) cyanocobalamin (vitamin B-12) 500 500 mcg PO BID 02/25/17 Unknown History mcg tablet (Vitamin B-12) dextroamphetamine-amphetamine ER 20 mg PO BID 02/25/17 03/03/17 07:00 History 20 mg 24hr capsule,extend release (Adderall XR) duloxetine 30 mg capsule,delayed 90 mg PO DAILY 02/25/17 03/03/17 07:00 History release levothyroxine 50 mcg tablet 50 mcg PO DAILY 02/25/17 03/03/17 07:00 History meloxicam 15 mg tablet (Mobic) 15 mg PO DAILY 02/25/17 Unknown History simethicone 125 mg capsule (Gas 125 mg PO PRN PRN Gas 02/25/17 Unknown History Relief (simethicone)) carbidopa 25 mg-levodopa 100 mg 1 tab PO 4X/DAY 11/09/23 Unknown History tablet duloxetine 60 mg capsule,delayed 60 mg PO DAILY 11/09/23 Unknown History release fluoride (sodium) 1.1 % dental PO 11/09/23 Unknown History paste hydroxyzine HCl 25 mg tablet 25 mg PO 4X/DAY PRN PRN depression 11/09/23 Unknown History ibandronate 150 mg tablet mg PO 11/09/23 Unknown History lamotrigine 200 mg tablet 200 mg PO BID 11/09/23 Unknown History linaclotide 72 mcg capsule 72 mcg PO DAILY 11/09/23 Unknown History (Linzess) lisinopril 20 mg tablet 20 mg PO DAILY 11/09/23 Unknown History metformin 500 mg tablet 500 mg PO TID 11/09/23 Unknown History pantoprazole 20 mg tablet,delayed 20 mg PO DAILY 11/09/23 Unknown History release rosuvastatin 10 mg tablet 10 mg PO QHS 11/09/23 Unknown History magnesium citrate 300 ml PO X1 #2 BOTTLES 12/08/23 Unknown Rx zolpidem 5 mg tablet (Ambien) 5 mg PO QHS PRN insomnia 3 days #3 12/19/23 Unknown Rx tabs hydrocodone-acetaminophen 5-325mg 1 tab PO Q6H PRN PRN Pain 3 days 01/06/24 Unknown Rx 5mg-325mg #10 TABLETS Allergy/AdvReac Type Severity Reaction Status Date / Time No Known Allergies Allergy Verified 01/06/24 10:50 Social History household members: spouse Smoking Status: Never smoker ROS ROS ED ROS Narrative Constitutional: No fever, no chills. Low blood pressure in physicians office. HEENT: No sore throat. No neck pain. No loss of vision. No rhinorrhea. Cardiovascular: No chest pain. No palpitations. No pedal edema. Respiratory: No cough, no shortness of breath. Abdominal: Chronic abdominal pain. No nausea. No vomiting. Genitourinary: No dysuria. No hematuria. Musculoskeletal: No myalgias. Left upper arm and shoulder aching. Neurologic: No headaches. No dizziness. Positive lightheadedness and near syncope. Skin: No rash. No change in color. Psychiatric: No depression. No anxiety. EXAM Physical Exam Narrative Exam Narrative: Afebrile. Vital signs noted. HEENT exam is unremarkable. PERRL, EOMI. Cardiovascular examination reveals regular rate and rhythm with intermittent bradycardia. Lungs are clear to auscultation bilaterally anteriorly. Abdomen soft nontender with mild distention, positive bowel sounds. Neurological examination is nonfocal and nonlateralizing. Musculoskeletal examination reveals equal palpable pulses radially. No crepitance of left upper arm. No clinical dislocation of left shoulder. Const Vital Signs: 02/21/24 10:18 02/21/24 10:27 02/21/24 10:33 Temperature 98.1 F Temperature Source Oral Pulse Rate 57 L Respiratory Rate 19 H Blood Pressure 137/67 H Blood Pressure Mean 90 Pulse Ox 97 Oxygen Delivery Method Room Air Room Air 02/21/24 12:18 Temperature Temperature Source Pulse Rate 62 Respiratory Rate 19 H Blood Pressure 166/88 H Blood Pressure Mean 114 Pulse Ox 97 Oxygen Delivery Method Room Air MDM MDM MDM Narrative Medical decision making narrative: Differential diagnosis includes but not limited to vasovagal episode versus dehydration versus ACS given her left shoulder pain which is new according to her . Anxiety is also in the differential but lower as history and physical does not support this. Comprehensive workup was pursued. EKG obtained and interpreted by myself as sinus bradycardia at 59 bpm without ectopy or acute ST changes. No STEMI. I reviewed her laboratory work and she has normal white count of 6.7 with hemoglobin stable at 11.7, platelet count normal at 344. Electrolyte panel is grossly unremarkable, lactic acid slight elevation at 2.0 which I think is nonspecific. Initial high-sensitivity troponin is 11. Chest x-ray in 1 view interpreted by myself independently shows no pneumonia or pneumothorax. I reviewed the radiology report which confirms my independent interpretation. Upon repeat examination, she requested Tylenol and something to eat. She states that her arm pain has resolved. She has normal blood pressure to elevated blood pressure here. I do think that she probably had more of a vasovagal type episode. I am unsure as to the cause of her left arm pain, but I do not feel that it is related to an acute coronary syndrome or unstable angina/anginal equivalent as her repeat troponin is 10. I feel she has been ruled out with biomarkers. At this point in time, she is feeling improved and is motivated for discharge. I feel she can be discharged to follow-up with her primary care provider. Return instructions were reviewed. Disposition is discharged home in stable condition. History & Record Review Discussion w/independent historian: Patient and Family () Lab Data Attestation: I reviewed the patient's lab results. Labs: Laboratory Results - last 24 hr 02/21/24 02/21/24 10:00 12:57 WBC 6.7 RBC 3.79 L Hgb 11.7 L Hct 37.9 MCV 100.0 H MCH 30.9 MCHC 30.9 L RDW Std Deviation 52.0 H RDW Coeff of Lisa 14.1 Plt Count 344 MPV 9.9 Immature Gran % (Auto) 0.400 Neut % (Auto) 76.3 H Lymph % (Auto) 16.2 L [place] % (Auto) 6.1 Eos % (Auto) 0.7 Baso % (Auto) 0.3 Absolute Neuts (auto) 5.1 Absolute Lymphs (auto) 1.09 Nucleated RBC % 0 Sodium 139 Potassium 3.6 Chloride 105 Carbon Dioxide 25.0 Anion Gap 9 BUN 17 Creatinine 0.91 Est GFR (MDRD) Af Amer 79 Est GFR (MDRD) Non-Af 65 BUN/Creatinine Ratio 18.7 Glucose 101 Lactic Acid 2.0 Calcium 9.7 Troponin I High Sens 11 10 Radiography Diagnostic Testing: Clinical Impression(s) from Imaging Studies Chest X-Ray 02/21/24 10:45 IMPRESSION: No active disease. Electronically Signed: Ashok Farmer MD at 10:57 EDT Reading Location ID and State: [address] [place] [address] Tel , Service support , Discharge Plan Triage Chief Complaint: Hypotension ED Provider: Daniel Toscano Dx/Rx/DC Orders Clinical Impression: Vasovagal near-syncope, Transient hypotension, Left arm pain, Elevated lactic acid level Instructions: ED Low Blood Pressure, All Causes, ED Pain, Acute, Uncertain Cause, ED Near-Fainting- Vagal Reaction Prescriptions: No Action meloxicam [Mobic] 15 MG tablet 15 mg PO DAILY simethicone [Gas Relief (simethicone)] 125 MG capsule 125 mg PO PRN PRN (Reason: Gas) cyanocobalamin (vitamin B-12) [Vitamin B-12] 500 MCG tablet 500 mcg PO BID dextroamphetamine-amphetamine [Adderall XR] 20 MG capsule,extended release 24hr 20 mg PO BID levothyroxine 50 MCG tablet 50 mcg PO DAILY cholecalciferol (vitamin D3) [Vitamin D3] 400 UNIT capsule 400 unit PO DAILY duloxetine 30 MG capsule 90 mg PO DAILY xebfu-k-egeokrxtbwbzj [Beano] 150 UNIT tablet 1 ea PO PRN PRN (Reason: Gas) Bacillus coagulans [Digestive Advantage Prob Gummy] 1 EACH tablet,chewable 1 ea PO TID magnesium citrate Solution 300 ml PO X1 Qty: 2 0RF Rx Instructions: May repeat in 12 hours if no substantial bowel movement zolpidem [Ambien] 5 mg tablet 5 mg PO QHS PRN (Reason: insomnia) 3 Days Qty: 3 0RF hydroxyzine HCl 25 mg tablet 25 mg PO 4X/DAY PRN PRN (Reason: depression) carbidopa-levodopa 25-100 mg tablet 1 tab PO 4X/DAY duloxetine 60 mg capsule,delayed release(DR/EC) 60 mg PO DAILY fluoride (sodium) 1.1 % paste PO metformin 500 mg tablet 500 mg PO TID lamotrigine 200 mg tablet 200 mg PO BID lisinopril 20 mg tablet 20 mg PO DAILY pantoprazole 20 mg tablet,delayed release (DR/EC) 20 mg PO DAILY rosuvastatin 10 mg tablet 10 mg PO QHS ibandronate 150 mg tablet PO Patient Comments: PLEASE SEE ATTACHED FOR DETAILED DIRECTIONS Linzess 72 mcg capsule 72 mcg PO DAILY hydrocodone-acetaminophen 5-325 mg tablet 1 tab PO Q6H PRN PRN (Reason: Pain) 3 Days Qty: 10 0RF Primary Care Provider: Vasile Calabrese Referrals: Vasile Calabrese MD [Primary Care Provider] - 3-5 Days Print Language: German Disposition Disposition: Home, Self Care
--- NOTE | 2024-02-21 10:45 | RAD_ITS ---
STUDY: X-RAY CHEST REASON FOR EXAM: Female, 68 years old. chest pain TECHNIQUE: Single AP portable view of the chest. COMPARISON: 12/19/2023 FINDINGS: Dorsal column spinal stimulator in the lower thoracic spine. The lungs are clear and expanded. There is no demonstrated pleural abnormality. Normal size heart. Normal mediastinum and philip. Normal visualized pulmonary arteries. Normal visualized aortic arch and descending thoracic aorta. There is a dextroscoliosis of the thoracic spine. Normal visualized ribs, clavicles, and shoulders. There is no demonstrated abnormality of the visualized soft tissue structures of the upper abdomen. RAD/Chest 1 View (Portable) IMPRESSION: No active disease. Electronically Signed: Ashok Farmer MD at 10:57 EDT ,
[2024-02-21 10:46] LABS: Absolute Lymphocyte Count 1.09 X10^3/uL (0.83-4.51); Absolute Neutrophil Count 5.1 X10^3/uL (2.0-7.7); Basophil# 0.02 X10^3/uL; Basophil% 0.3 % (0-1); Eosinophil# 0.05 X10^3/uL; Eosinophils% 0.7 % (0-5); Hematocrit 37.9 % (37-47); Hemoglobin 11.7 g/dL (12.0-15.0); Lymphocyte # 1.09 X10^3/ul (0.83-4.51); Lymphocyte % 16.2 % (19-41); Mean Corp Hgb Conc 30.9 g/dL (32-36); Mean Corpuscular Hgb 30.9 pg (27.0-32.0); Mean Platelet Vol. 9.9 fl (6.2-12.0); Monocyte# 0.41 X10^3/uL; Monocyte% 6.1 % (0-10); NRBC Flagged by Analyzer 0 % (0-5); Neutrophil # 5.14 X10^3/uL (2.7-7.7); Neutrophil % 76.3 % (47-70); Platelet Count 344 K/mm3 (150-450); RBC Distribution Width CV 14.1 % (11.6-14.6); Red Blood Count 3.79 M/mm3 (4.2-5.4); White Blood Count 6.7 K/mm3 (4.4-11.0)
[2024-02-21 11:14] LABS: Anion Gap 9 (5-15); BUN 17 mg/dL (7-18); BUN/Creat Ratio 18.7 RATIO (10-20); Calcium,Total 9.7 mg/dL (8.5-10.1); Chloride 105 mmol/L (98-107); Creatinine, Serum 0.91 mg/dL (0.55-1.02); EST Glomerular Filtration Rate 65 mL/min (>60); Est Glom Filt Rate - Afr Amer 79 mL/min (>60); Glucose 101 mg/dL (74-106); Potassium 3.6 mmol/L (3.5-5.1); Sodium Level 139 mmol/L (136-145); Troponin-I HS (w/2H Reflex) 11 pg/mL (3.0-54.0)
[2024-02-21 12:18] VITALS: BP 166/88; PULSE 62; RESP 19; O2SAT 97
[2024-02-21 12:43] LABS: Reflex Troponin-HS? (from REC) Y
[2024-02-21] MEDS: Acetaminophen 325 MG Tablet 650 MG PO (12:56)
[2024-02-21 13:21] LABS: Troponin-I HS 10 pg/mL (3.0-54.0)
[2024-02-21 14:15] VITALS: BP 143/98; PULSE 57; RESP 18; TEMP 36.6; O2SAT 97
[2024-02-21 14:42] LABS: Reflex Lactate? Y
== END 2024-02-21 14:16 | disposition home or self-care (01) ==
PROVIDERS: Emergency Provider Emergency Medicine; PCP Family Medicine; Visit Provider Emergency Medicine
DX: R55 Syncope and collapse (principal); M79.622 Pain in left upper arm; R74.8 Abnormal levels of other serum enzymes; I10 Essential (primary) hypertension; E03.9 Hypothyroidism, unspecified; I95.9 Hypotension, unspecified
CPT/HCPCS: 71045; 80048; 83605; 84484; 85025; 93005; 99284; A4216

== ENCOUNTER 2024-08-17 13:00 | Emergency (ER) | payer MEDICARE, OTHER, SELFPAY ==
[2024-08-17 13:01] VITALS: BP 91/44; PULSE 72; RESP 14; TEMP 36.2; O2SAT 98
--- NOTE | 2024-08-17 13:17 | EDS_ITS ---
HPI History of Present Illness Chief Complaint: Chest Other Informant: patient and spouse/S.O. Narrative Narrative: 68-year-old female states that about 5 days prior to ED visit she tripped on some rugs at home injuring her left ribs. She denies any head injury headache or vomiting. She denies any hemoptysis. She states that whenever she goes to move or take a deep breath she has pain in the left mid to lower mid axillary rib region. She states she is not on any blood thinners. She denies any new neck or back pain. History of spinal stimulator. [facility] Medical History Asthma Restless leg Adult hypothyroidism Home Medications ?Medication ?Instructions ?Recorded ?Last Taken ?Type Bacillus coagulans 250 million 1 ea PO TID 02/25/17 Un known History cell chewable tablet (Digestive Advantage Probiotic Gummy) tnryn-c-dmiammjzkkdsf 150 unit 1 ea PO PRN PRN Gas Unknown History tablet (Beano) cholecalciferol (vitamin D3) 10 400 unit PO DAILY 02/13 07/30 Unknown History mcg (400 unit) capsule (Vitamin D3) cyanocobalamin (vitamin B-12) 500 500 mcg PO BID 02/25 Unknown History mcg tablet (Vitamin B-12) dextroamphetamine-amphetamine ER 20 mg PO BID 02/25/17 03/03/17 07:00 History 20 mg 24hr capsule,extend release (Adderall XR) duloxetine 30 mg capsule,delayed 90 mg PO DAILY 03/03/17 07:00 History release levothyroxine 50 mcg tablet 50 mcg PO DAILY 02/25/17 1 07:00 History meloxicam 15 mg tablet (Mobic) 15 mg PO DAILY 02/25/17 Unknown History simethicone 125 mg capsule (Gas 125 mg PO PRN PRN Gas 02/25/17 Unknown History Relief (simethicone)) carbidopa 25 mg-levodopa 100 mg 1 tab PO 4X/DAY Unknown History tablet duloxetine 60 mg capsule,delayed 60 mg PO DAILY Unknown History release fluoride (sodium) 1.1 % dental PO 11/09/23 Unknown His tory paste hydroxyzine HCl 25 mg tablet 25 mg PO 4X/DAY PRN PRN d epression 11/09/23 Unknown History ibandronate 150 mg tablet mg PO 11/09/23 Unknown Histo ry lamotrigine 200 mg tablet 200 mg PO BID 11/09/23 Unkno wn History linaclotide 72 mcg capsule 72 mcg PO DAILY 11/09/23 Un known History (Linzess) lisinopril 20 mg tablet 20 mg PO DAILY 11/09/23 Unkn own History metformin 500 mg tablet 500 mg PO TID 11/09/23 Unkno wn History pantoprazole 20 mg tablet,delayed 20 mg PO DAILY 11/08 Unknown History release rosuvastatin 10 mg tablet 10 mg PO QHS 11/09/23 Unknow n History magnesium citrate 300 ml PO X1 #2 BOTTLES 11/14 10/06 Unknown Rx zolpidem 5 mg tablet (Ambien) 5 mg PO QHS PRN insomnia 3 days #3 12/19/23 Unknown Rx tabs hydrocodone-acetaminophen 5-325mg 1 tab PO Q6H PRN PRN Pain 3 days 01/06/24 Unknown Rx 5mg-325mg #10 TABLETS oxycodone-acetaminophen 5 mg-325 1 tab PO Q6H PRN PRN pain 5 days 08/17/24 Unknown Rx mg tablet #20 TABLETS Allergy/AdvReac Type Severity Reaction Status Date / Time No Known Allergies Allergy Verified 08/17/24 13:01 Social History household members: spouse Smoking Status: Never smoker ROS ROS ED Constitutional Constitutional ED: Denies chills, fever(s) or weight loss Eyes Eyes: Denies change in vision or diplopia ENT ENT ED: Denies ear pain, rhinorrhea or sore throat Cardiovascular Cardiovascular: Reports chest pain; Denies orthopnea, palpitations or racing heartbeat Respiratory/Chest Respiratory/Chest: Denies cough, dyspnea or orthopnea Gastrointestinal Gastrointestinal: Denies abdominal pain, diarrhea, nausea or vomiting Genitourinary Genitourinary ED: Denies dysuria, hematuria or urinary frequency Musculoskeletal Musculoskeletal: Reports back pain; Denies arthralgias, myalgias or neck pain Integumentary Denies abscess or rash Neurologic Neurologic: Denies headache(s) or weakness Psychiatric Psychiatric: Denies anxiety, depression, suicidal ideation or suicidal thoughts Endocrine Endocrinology: Denies polydipsia, polyphagia or polyuria Allergic/Immunologic Allergic/Immunologic ED: Denies mouth swelling, tongue swelling or urticaria EXAM Physical Exam Const Vital Signs: 08/17/24 13:01 08/17/24 13:12 08/17/24 14:41 Temperature 97.1 F L 97.1 F L Temperature Source Temporal Pulse Rate 72 72 Respiratory Rate 14 14 Respiratory Effort Normal Blood Pressure 91/44 L 142/68 H Blood Pressure Mean 59 92 Pulse Ox 98 98 Oxygen Delivery Method Room Air Positive well nourished and well developed General Appearance ED: well developed HEENT Reports normocephalic, head/scalp atraumatic and moist mucous membranes Eyes PERRL and EOMs intact bilaterally Neck full ROM, no lymphadenopathy, supple and no JVD Chest Wall Chest Narrative: Tender to palpation over the mid and lower mid axillary left ribs. There is no subcutaneous emphysema. No significant ecchymosis is seen. No palpable deformity. When she goes to move if she splints by holding the area. Resp normal respiratory effort and clear to auscultation bilaterally Cardio regular rate, regular rhythm and no murmurs GI normal to inspection, nondistended, normoactive bowel sounds and non-tender Palpation: soft Back/Spine no CVA tenderness and normal ROM Extremity normal to inspection General Extremety ED: Negative for edema General Extremity: Negative for edema Neuro oriented x3 and CN's II-XII intact bilaterally Sensorium / Orientation: alert Motor Exam: strength 5/5 throughout Psych mental status grossly normal Mood & Affect: Negative for depressed or tearful Skin no rashes or lesions noted and no wounds MDM MDM MDM Narrative Medical decision making narrative: Differential diagnosis includes but not limited to rib fracture rib contusion hemothorax pneumothorax pulmonary contusion splenic or renal injury pneumonia CT of the chest demonstrates small hemothorax with nondisplaced rib fractures of 8 9 and 10. The petroleum laboratory technician was concerned about possible fluid around the liver. I reviewed this and we obtained a CT of the pelvis with IV contrast. The exact etiology of the small amount of fluid is unknown. She is not tender or demonstrating any trauma to that side. She was given oxycodone for pain. Basic blood work is essentially negative. Patient and her are com fortable being discharged home. We talked about return instructions and home care. I have asked that she follow-up with primary care in 1 week for recheck to see how she is doing. History & Record Review Discussion w/independent historian: Patient Lab Data Attestation: I reviewed the patient's lab results. Labs: Laboratory Results - last 24 hr 08/17/24 13:40 WBC 6.4 RBC 3.58 L Hgb 10.8 L Hct 33.7 L MCV 94.1 MCH 30.2 MCHC 32.0 RDW Std Deviation 50.4 H RDW Coeff of Lisa 14.5 Plt Count 247 MPV 10.1 Immature Gran % (Auto) 0.200 Neut % (Auto) 74.1 H Lymph % (Auto) 17.1 L [place] % (Auto) 6.9 Eos % (Auto) 1.4 Baso % (Auto) 0.3 Absolute Neuts (auto) 4.7 Absolute Lymphs (auto) 1.09 Nucleated RBC % 0 Sodium 139 Potassium 4.8 Chloride 103 Carbon Dioxide 26.3 Anion Gap 10 BUN 17 Creatinine 0.89 Est GFR (MDRD) Non-Af 70 BUN/Creatinine Ratio 19.0 Glucose 79 Calcium 9.3 Total Bilirubin 0.28 Direct Bilirubin < 0.08 AST 37 H ALT 22 Alkaline Phosphatase 110 H Total Protein 7.1 Albumin 3.9 Globulin 3.2 Lipase 33 Radiography Diagnostic Testing: Clinical Impression(s) from Imaging Studies Abdomen/Pelvis CT 08/17/24 13:40 IMPRESSION: Small left pleural effusion with left basilar atelectasis. Tiny amount of fluid seen in the anterior aspect of the right lobe of the liver superiorly. Status post cholecystectomy. Reading Location: [facility] 08/17/24 13:40 IMPRESSION: Small left pleural effusion with left basilar atelectasis and/or infiltration. Nondisplaced fractures of the left 8th 9th and 10th ribs. Reading Location: [facility] Discharge Plan Triage Chief Complaint: Chest Other ED Provider: Shaquille Suresh Dx/Rx/DC Orders Clinical Impression: Left rib fracture, Fall Instructions: ED Rib Fracture Prescriptions: New oxycodone-acetaminophen 5-325 mg tablet 1 tab PO Q6H PRN PRN (Reason: pain) 5 Days Qty: 20 0RF No Action meloxicam [Mobic] 15 MG tablet 15 mg PO DAILY simethicone [Gas Relief (simethicone)] 125 MG capsule 125 mg PO PRN PRN (Reason: Gas) cyanocobalamin (vitamin B-12) [Vitamin B-12] 500 MCG tablet 500 mcg PO BID dextroamphetamine-amphetamine [Adderall XR] 20 MG capsule,extended release 24hr 20 mg PO BID levothyroxine 50 MCG tablet 50 mcg PO DAILY cholecalciferol (vitamin D3) [Vitamin D3] 400 UNIT capsule 400 unit PO DAILY duloxetine 30 MG capsule 90 mg PO DAILY eythn-v-albteeroodwxz [Beano] 150 UNIT tablet 1 ea PO PRN PRN (Reason: Gas) Bacillus coagulans [Digestive Advantage Prob Gummy] 1 EACH tablet,chewable 1 ea PO TID magnesium citrate Solution 300 ml PO X1 Qty: 2 0RF Rx Instructions: May repeat in 12 hours if no substantial bowel movement zolpidem [Ambien] 5 mg tablet 5 mg PO QHS PRN (Reason: insomnia) 3 Days Qty: 3 0RF hydroxyzine HCl 25 mg tablet 25 mg PO 4X/DAY PRN PRN (Reason: depression) carbidopa-levodopa 25-100 mg tablet 1 tab PO 4X/DAY duloxetine 60 mg capsule,delayed release(DR/EC) 60 mg PO DAILY fluoride (sodium) 1.1 % paste PO metformin 500 mg tablet 500 mg PO TID lamotrigine 200 mg tablet 200 mg PO BID lisinopril 20 mg tablet 20 mg PO DAILY pantoprazole 20 mg tablet,delayed release (DR/EC) 20 mg PO DAILY rosuvastatin 10 mg tablet 10 mg PO QHS ibandronate 150 mg tablet PO Patient Comments: PLEASE SEE ATTACHED FOR DETAILED DIRECTIONS Linzess 72 mcg capsule 72 mcg PO DAILY hydrocodone-acetaminophen 5-325 mg tablet 1 tab PO Q6H PRN PRN (Reason: Pain) 3 Days Qty: 10 0RF Primary Care Provider: Vasile Calabrese Referrals: Vasile Calabrese MD [Primary Care Provider] - 1 Week Print Language: Yakut Disposition Disposition: Home, Self Care
--- NOTE | 2024-08-17 13:40 | CT_ITS ---
PROCEDURE: ABDOMEN/PELVIS W IV CONT ONLY 08/17/2024 REASON FOR EXAM: TRAUMA Pain following a recent fall. TECHNIQUE: Abdomen and pelvis CT with intravenous contrast. Coronal and Sagittal reconstruction series were provided. PATIENT PREPARATION: Per protocol ORAL CONTRAST TYPE: None. CONTRAST: Isovue-300 VOLUME: 75 mL One or more dose reduction techniques were used (e.g., Automated exposure control, adjustment of the mA and/or kV according to patient size, use of iterative reconstruction technique. RADIATION DOSE SUMMARY: CTDlvol: 8 mGy DLP: 291.82 mGycm COMPARISON: None FINDINGS: Lung bases: Small left pleural effusion with left basilar atelectasis and/or infiltrate. Nondisplaced underlying rib fracture. Liver: Normal size. No mass. Small amount of free fluid is seen along the anterior aspect of the right lobe of the liver superiorly. Gallbladder: Surgically absent. Mildly dilated common bile duct measuring 7.1 mm. Spleen: Normal size. Pancreas: Normal size without evidence of mass surrounding inflammation or ductal dilation. Adrenals: Unremarkable. Kidneys: Normal renal sizes. No hydronephrosis. Bladder: Unremarkable Reproductive Organs: Calcified fibroid uterus. Bowel: Large amount of fecal material is seen in the colon. Appendix: The appendix is not identified. There is no inflammatory process identified in the right lower quadrant to suggest appendicitis. Lymph nodes: No suspicious lymph node enlargement. Vasculature: Mild diffuse atherosclerotic calcifications are noted. Peritoneum / Retroperitoneum: Unremarkable Bones: Degenerative changes of the spine. CT/Abdomen/Pelvis W IV Cont ONLY IMPRESSION: Small left pleural effusion with left basilar atelectasis. Tiny amount of fluid seen in the anterior aspect of the right lobe of the liver superiorly. Status post cholecystectomy. Reading Location: [place] [address]
--- NOTE | 2024-08-17 13:40 | CT_ITS ---
PROCEDURE: CHEST WITHOUT CONTRAST 08/17/2024 REASON FOR EXAM: LEFT RIB INJURY following a fall. TECHNIQUE: Chest CT without contrast. Coronal and Sagittal reconstruction series were provided. One or more dose reduction techniques were used (e.g., Automated exposure control, adjustment of the mA and/or kV according to patient size, use of iterative reconstruction technique RADIATION DOSE SUMMARY: CTDlvol: 6.71 mGy DLP: 214.46 mGycm FINDINGS: Hardware: None Lymph nodes: None Heart and Vasculature: Coronary artery calcifications are noted. Coronary Artery Calcifications: Present Lungs and Airways: Small left pleural effusion with left basilar atelectasis and/or infiltrate. No evidence of pneumothorax. Upper Abdomen: Unremarkable. Bones: Nondisplaced fracture along the posterior lateral aspect of the left 8 9th and 10th ribs. Increased kyphosis. Multilevel disc space narrowing. Dextroscoliosis. CT/Chest without Contrast IMPRESSION: Small left pleural effusion with left basilar atelectasis and/or infiltration. Nondisplaced fractures of the left 8th 9th and 10th ribs. Reading Location: [place] [address]
[2024-08-17 13:47] LABS: Absolute Lymphocyte Count 1.09 X10^3/uL (0.83-4.51); Absolute Neutrophil Count 4.7 X10^3/uL (2.0-7.7); Basophil# 0.02 X10^3/uL; Basophil% 0.3 % (0-1); Eosinophil# 0.09 X10^3/uL; Eosinophils% 1.4 % (0-5); Hematocrit 33.7 % (37-47); Hemoglobin 10.8 g/dL (12.0-15.0); Lymphocyte # 1.09 X10^3/ul (0.83-4.51); Lymphocyte % 17.1 % (19-41); Mean Corpuscular Hgb 30.2 pg (27.0-32.0); Mean Corpuscular Volume 94.1 fL (81-99); Mean Platelet Vol. 10.1 fl (6.2-12.0); Monocyte# 0.44 X10^3/uL; Monocyte% 6.9 % (0-10); NRBC Flagged by Analyzer 0 % (0-5); Neutrophil # 4.71 X10^3/uL (2.7-7.7); Neutrophil % 74.1 % (47-70); Platelet Count 247 K/mm3 (150-450); RBC Distribution Width CV 14.5 % (11.6-14.6); RBC Distribution Width SD 50.4 fl (35.1-43.9); Red Blood Count 3.58 M/mm3 (4.2-5.4); White Blood Count 6.4 K/mm3 (4.4-11.0)
[2024-08-17 14:08] LABS: Lipase 33 U/L (13-75)
[2024-08-17 14:09] LABS: AST(SGOT) 37 U/L (<=31); Alanine Aminotransfer ALT/SGPT 22 U/L (<=34); Albumin, Serum 3.9 g/dL (3.4-4.8); Alkaline Phosphatase 110 U/L (35-104); Anion Gap 10 (5-15); BUN 17 mg/dL (4-19); Bilirubin, Direct < 0.08 mg/dL (0.00-0.30); Calcium,Total 9.3 mg/dL (7.6-11.0); Carbon Dioxide 26.3 mmol/L (21.0-32.0); Chloride 103 mmol/L (98-108); Creatinine, Serum 0.89 mg/dL (0.70-1.20); EST Glomerular Filtration Rate 70 (>60); Globulin 3.2 g/dL (2.2-4.2); Glucose 79 mg/dL (70-99); Potassium 4.8 mmol/L (3.3-5.1); Protein, Total 7.1 g/dL (5.9-8.4); Sodium Level 139 mmol/L (133-145); Total Bilirubin 0.28 mg/dL (0.00-1.30)
[2024-08-17] MEDS: oxyCODONE 5 MG Tablet PO (14:11)
[2024-08-17 14:41] VITALS: BP 142/68; PULSE 72; RESP 14; TEMP 36.2; O2SAT 98
== END 2024-08-17 14:57 | disposition home or self-care (01) ==
PROVIDERS: Emergency Provider Emergency Medicine; PCP Family Medicine; Visit Provider Emergency Medicine
DX: S22.42XA Multiple fractures of ribs, left side, initial encounter for closed fracture (principal); J90 Pleural effusion, not elsewhere classified; W01.0XXA Fall on same level from slipping, tripping and stumbling without subsequent striking against object, initial encounter; E03.9 Hypothyroidism, unspecified; J98.11 Atelectasis
CPT/HCPCS: 71250; 74177; 80048; 80076; 83690; 85025; 99283; Q9967; A4216